=== PATIENT | male | born 1995 | race Caucasian/White ===

== ENCOUNTER 2018-09-24 05:13 | Day surgery (SDC) | payer OTHER ==
[2018-09-22 18:07] VITALS: BMI 26.4
[~2018-09-24 05:13] MED LIST: ceFAZolin SODIUM 1 GM VIAL IVPB ONE
[2018-09-24] MEDS ORDERED: LIDOCAINE HCL/PF 2% SDV 5ML VIAL ONE (07:28)
[2018-09-24] MEDS ORDERED: SUCCINYLCHOLINE CHLORIDE 200 MG/10 ML VIAL ONE (07:28)
[2018-09-24] MEDS ORDERED: MIDAZOLAM HCL 2 MG/2 ML SINGLE DOSE VIAL ONE (07:28)
[2018-09-24] MEDS ORDERED: PROPOFOL 20 ML ONE ×2 (07:28→08:19)
--- NOTE | 2018-09-24 08:24 | HP ---
Satellite [facility] - Chief Complaint Chief Complaint: right knee pain - Past Medical History Allergies/Adverse Reactions: Allergies Allergy/AdvReac Type Severity Reaction Status Date / Time No Known Allergies Allergy Verified 09/22/18 18:02 - Current Medications Current Medications: Home Medications Medication Instructions Recorded Cetirizine HCl [Zyrtec -] 10 mg PO DAILY PRN 09/22/18 Oxycodone HCl/Acetaminophen 1 tab PO Q6H #20 tablet MDD 4 09/24/18 [Percocet 5-325 mg Tablet] Satellite Physical Exam - Physical Examination Vital Signs: Vital Signs Period Temp Pulse Resp BP Sys/Chen Pulse Ox Last 24 Hr 97.6 F 74 20 127/70 98 General Appearance: Well Nourished, Well Developed, Alert & Oriented x3 ENT: Clear Lung: Normal air movement Heart: Regular rate & rhythm Extremities: Other (right knee- + swelling, + ttp, dec rom, + mcmurrays, nvi, MRI +lmt) Neurological: Intact, Alert, Oriented Satellite Impression/Plan - Impression/Plan Impression: right knee internal derangement Operative Procedure: right knee arthroscopy Date to be Performed: 09/24/18
[2018-09-24] MEDS ORDERED: DEXAMETHASONE SOD PHOSPHATE 4 MG/1 ML VIAL ONE (08:28)
[2018-09-24] MEDS ORDERED: BUPIVACAINE HCL/PF (5 MG/ML) 30 ML VIAL IJ ONE (08:28)
[2018-09-24] MEDS ORDERED: LIDOCAINE 1%/EPI 1:100000 (20 ML MULTI DOSE VIAL) IJ ONE (08:28)
--- NOTE | 2018-09-24 08:54 | OP ---
Operative Note - Note: Operative Date: 09/24/18 ([facility]) Pre-Operative Diagnosis: right knee internal derangement Operation: right knee arthroscopy with PLM Post-Operative Diagnosis: Same as Pre-op Surgeon: Armando John Anesthesia: General, Local Specimens Removed: shavings Estimated Blood Loss (mls): 5 Operative Report Dictated: Yes
--- NOTE | 2018-09-24 09:34 | OP ---
DATE OF OPERATION: 09/24/2018 PREOPERATIVE DIAGNOSIS: Internal derangement, right knee. POSTOPERATIVE DIAGNOSIS: Internal derangement, right knee. PROCEDURE: Arthroscopy, right knee, with partial lateral meniscectomy. SURGICAL ATTENDING: Armando John MD ANESTHESIA: General with LMA. CLOSURE: 4-0 nylon. COMPLICATIONS: None. CONDITION: To recovery room in stable condition. DESCRIPTION OF OPERATIVE PROCEDURE: Patient was taken to the operating room on September 24, 2018. General anesthesia with LMA was administered by the anesthesiologist. Right lower extremity was prepped and draped in the usual sterile fashion. Medial and lateral infrapatellar portal sites were infiltrated with 1% Xylocaine with epinephrine. Both portals were then made with a 15 blade followed by blunt trocar. The scope trocar was placed in the lateral infrapatellar portal and up into the suprapatellar pouch. Then, the knee was inflated with a cocktail of 10 mL of 1% Xylocaine, 10 mL of 0.5% Marcaine, and 20 mL of arthroscopic saline through the scope trocar inflow port. After allowing the anesthetic to function inside the knee, the procedure was performed. The undersurface of the patella and trochlea were visualized to be intact. The pouch and the medial and lateral gutters were visualized to be free of any loose bodies. With valgus stress on the knee, the medial compartment was entered. The medial meniscus was visualized, probed, and found to be intact. The medial femoral condyle was run and found to be intact as was the medial tibial plateau. At 90 degrees, the ACL was visualized, probed, and found to be intact. In a figure 4 position, the lateral compartment was entered. The lateral meniscus was found to have a complex tear extending from its mid portion back to the posterior horn. This was debrided back to a smooth and stable meniscal tissue using a meniscal biter and arthroscopic shaver. There was some part of a horizontal component, which was debrided, and the surrounding synovium was abraded to bring in blood supply to heal that, as well. Then, the remaining meniscus was balanced. It was probed and found to be intact. The lateral femoral condyle was run and found to be intact, as was the lateral tibial plateau. The knee was irrigated with copious amounts of irrigation. Fluid was drained from the knee. The portals were closed with 4-0 nylon interrupted suture. Then, 20 mL of 0.5% Marcaine was infused into the knee through the scope trocar prior to pulling the trocar. Sterile pressure dressing was placed over the knee. Patient awakened from anesthesia and transferred to recovery in stable condition. No complications. Estimated blood loss negligible. ARMANDO JOHN M.D. [id number]
[2018-09-24] MEDS ORDERED: oxyCODONE HCL 5 MG TABLET PO PRN (09:36)
[2018-09-24] MEDS ORDERED: ONDANSETRON 4 MG/2 ML VIAL IVPUSH PRN (09:36)
[2018-09-24] MEDS ORDERED: LACTATED RINGERS SOLUTION 1,000 ML IV SCH (09:45)
[2018-09-24 12:12] VITALS: BP 126/72; PULSE 62; TEMP 98.2
== END 2018-09-24 12:17 | disposition home or self-care (01) ==
LOC: JASU-SURG 05:13
PROVIDERS: ATTEND Orthopaedic Surgery
PROC: 0SBC4ZZ Excision of Right Knee Joint, Percutaneous Endoscopic Approach (ICD-10-PCS; principal; 2018-09-24 08:00)
DX: S83.271A Complex tear of lateral meniscus, current injury, right knee, initial encounter (principal); X58.XXXA Exposure to other specified factors, initial encounter; Y93.9 Activity, unspecified; Y92.9 Unspecified place or not applicable; Y99.9 Unspecified external cause status
CPT/HCPCS: 94760; 97116-GP